=== PATIENT | male | born 1980 | race Hispanic/Latino ===

== ENCOUNTER 2016-12-02 17:46 | Inpatient (IN) | payer SELFPAY ==
[~2016-12-02] VITALS: Ht 165.1 cm; Wt 80.8 kg
[2016-12-02 19:29] LABS: HEMATOCRIT 46.1 % (38.0-50.0); MCH 27.7 PG (29.0-34.0); MCHC 34.5 G/DL (30.0-36.0); MCV 80.2 FL (86-99); MEAN PLAT.VOLUME 10.3 uM^3 (9.0-12.4); PLATELET COUNT 352 K/uL (156-360); RBC DIS.WIDTH-CV 12.2 % (11.8-14.6); RBC DIS.WIDTH-SD 35.3 % (39-53); RED BLOOD COUNT 5.75 M/uL (4.00-5.50); WHITE BLOOD COUNT 9.2 K/uL (4.1-10.2)
[2016-12-02 19:37] LABS: CHLORIDE 94 mEq/L (99-109); POTASSIUM 3.7 mEq/L (3.7-5.4); SODIUM 132 mEq/L (136-147)
[2016-12-02 19:38] LABS: GLUCOSE 329 mg/dL (70-99)
[2016-12-02 19:40] LABS: ANION GAP 15 MEQ/L (2-14)
[2016-12-02 19:42] LABS: GFR ESTIMATE (CALCULATED) > 59 mL/min/
[2016-12-02 19:43] LABS: UREA NITROGEN (BUN) 9 mg/dL (9-23)
[2016-12-02] MEDS ORDERED: NOVOLOG PE100 UNITS/ SC (19:54)
[2016-12-02] MEDS ORDERED: AMOXICILLIN875 MG PO (19:54)
[2016-12-02] MEDS ORDERED: NORCO 5/3251 TABLET PO (19:55)
[2016-12-02] MEDS ORDERED: CIPRODEX OTIC7.5 ML LEFT EAR (19:55)
[2016-12-02 21:34] LABS: ADD MIUA? YES; BILIRUBIN NEGATIVE; BLOOD SMALL; COLOR YELLOW ((YELLOW)); GLUCOSE (STRIP) >=500; KETONES 80; LEUKOCYTES NEGATIVE; NITRITE NEGATIVE; PROTEIN (STRIP) >=500; UROBILINOGEN 0.2 MG/DL (0.2-1.0)
[2016-12-02 21:42] LABS: BACTERIA NONE SEEN /HPF; EPITHELIAL CELLS RARE /HPF; MUCUS TRACE /LPF; RED BLOOD CELLS 0-5 /HPF (0-5); UCUL ADDED? NO; WHITE BLOOD CELLS 0-5 /HPF (0-5)
[2016-12-02 21:57] LABS: SPECIFIC GRAVITY 1.085 (1.000-1.030)
[2016-12-02 22:43] LABS: POINT-OF-CARE METER ID UU13113702
[2016-12-02] MEDS ORDERED: TYLENOL EXTRA500 MG PO (23:11)
[2016-12-03] LABS: CARBON DIOXIDE (BICARBONATE) 29.8 MEQ/L (20-31)
[2016-12-03 00:06] LABS: CHLORIDE 97 mEq/L (99-109); POTASSIUM 3.6 mEq/L (3.7-5.4); SODIUM 134 mEq/L (136-147)
[2016-12-03 00:07] LABS: MAGNESIUM 1.8 mg/dL (1.3-2.7)
[2016-12-03 00:09] LABS: GLUCOSE 333 mg/dL (70-99)
[2016-12-03 00:10] VITALS: BP 129/77
[2016-12-03 00:10] LABS: ANION GAP 13 MEQ/L (2-14)
[2016-12-03 00:11] LABS: TOTAL BILIRUBIN 0.5 mg/dL (0.0-1.0)
[2016-12-03 00:12] LABS: ALKALINE PHOSPHATASE 78 IU/L (3-129); GFR ESTIMATE (CALCULATED) > 59 mL/min/
[2016-12-03 00:13] LABS: UREA NITROGEN (BUN) 11 mg/dL (9-23)
[2016-12-03 07:10] VITALS: BP 116/57
[2016-12-03 07:43] LABS: HEMATOCRIT 40.8 % (38.0-50.0); MCHC 34.3 G/DL (30.0-36.0); MCV 81.6 FL (86-99); MEAN PLAT.VOLUME 10.5 uM^3 (9.0-12.4); PLATELET COUNT 306 K/uL (156-360); RBC DIS.WIDTH-CV 12.2 % (11.8-14.6); RBC DIS.WIDTH-SD 36.5 % (39-53); WHITE BLOOD COUNT 7.4 K/uL (4.1-10.2)
[2016-12-03 08:43] LABS: ANION GAP 13 MEQ/L (2-14); CHLORIDE 97 MEQ/L (99-109); GFR ESTIMATE (CALCULATED) > 59 mL/min/; GLUCOSE 227 mg/dL (70-99); POTASSIUM 3.9 MEQ/L (3.7-5.4); SAMPLE HEMOLYSIS CHECK 0; SAMPLE ICTERIC CHECK 0; SAMPLE LIPEMIA CHECK 0; SODIUM 136 MEQ/L (136-147); UREA NITROGEN (BUN) 10 mg/dL (9-23)
[2016-12-03 08:44] LABS: Estimated Average Glucose 269 mg/dL (70-123)
[2016-12-03 15:39] VITALS: BP 132/80
[2016-12-03 16:43] LABS: POINT-OF-CARE METER ID UU13113725
[2016-12-03 23:20] VITALS: BP 135/73
[2016-12-04 06:23] LABS: POINT-OF-CARE METER ID UU13113725
[2016-12-04 07:45] VITALS: BP 131/77
[2016-12-04 11:54] LABS: POINT-OF-CARE METER ID UU13113725
[2016-12-04 23:03] VITALS: BP 114/78
[2016-12-05 07:16] LABS: EOSINOPHIL (%) 1.3 % (0-5); EOSINOPHIL COUNT 0.1 K/uL (0-0.3); HEMATOCRIT 42.6 % (38.0-50.0); IMMATURE GRANULOCYTE (%) 0.8 % (0.0-0.7); INSTRUMENT ABS NEUTROPHIL CT 2.7 K/uL; LYMPHOCYTE COUNT 1.4 K/uL (1.0-2.8); MCH 27.6 PG (29.0-34.0); MCHC 33.8 G/DL (30.0-36.0); MCV 81.6 FL (86-99); MEAN PLAT.VOLUME 9.8 uM^3 (9.0-12.4); MONOCYTE (%) 10.4 % (3-12); MONOCYTE COUNT 0.5 K/uL (0-0.8); NEUTROPHIL COUNT 2.7 K/uL (1.8-6.4); PLATELET COUNT 352 K/uL (156-360); RED BLOOD COUNT 5.22 M/uL (4.00-5.50)
[2016-12-05 07:22] VITALS: BP 116/70
[2016-12-05 07:22] LABS: WHITE BLOOD COUNT 4.8 K/uL (4.1-10.2)
[2016-12-05 07:37] LABS: ANION GAP 9 MEQ/L (2-14); CHLORIDE 95 MEQ/L (99-109); GFR ESTIMATE (CALCULATED) > 59 mL/min/; GLUCOSE 211 mg/dL (70-99); POTASSIUM 3.9 MEQ/L (3.7-5.4); SAMPLE HEMOLYSIS CHECK 0; SAMPLE ICTERIC CHECK 0; SAMPLE LIPEMIA CHECK 0; SODIUM 135 MEQ/L (136-147); UREA NITROGEN (BUN) 10 mg/dL (9-23)
[2016-12-05 10:50] LABS: POINT-OF-CARE METER ID UU13113725
[2016-12-05] MEDS ORDERED: AMOXICILLIN875 MG PO (13:45)
[2016-12-05] MEDS ORDERED: GLIPIZIDE5 MG PO (13:45)
[2016-12-05] MEDS ORDERED: METFORMIN HCL500 MG PO (13:45)
[2016-12-05] MEDS ORDERED: CIPRODEX OTIC7.5 ML LEFT EAR (13:45)
== END 2016-12-05 14:45 | disposition home or self-care (01) | DRG 153 ==
LOC: EME 17:46 → EDOF 23:22 → 5EAST 23:22
PROVIDERS: Hospitalist; Internal Medicine; Physician Assistant; Physician Assistant Medical
DX: H66.92 Otitis media, unspecified, left ear (principal); H60.92 Unspecified otitis externa, left ear; J01.40 Acute pansinusitis, unspecified; E87.6 Hypokalemia; E83.42 Hypomagnesemia; E10.9 Type 1 diabetes mellitus without complications; Z79.4 Long term (current) use of insulin; Z91.19 Patient's noncompliance with other medical treatment and regimen
CPT/HCPCS: 70487; 71020; 80048; 80053; 81003; 82010; 82803; 82948; 83036; 83605; 83735; 85025; 85027; 87040; 87070; 87075; 87076; 87077; 87181; 87205; 93005; 99281; 99285; J0696; J1170; J1815; J1885; J3010; J3475; J3480; J7030; J7050